=== PATIENT | female | born 1995 | race African-American/Black ===

== ENCOUNTER 2016-11-23 12:28 | Outpatient (CLI) | payer MEDICAID ==
[2016-11-23 12:58] VITALS: BP 112/69
== END 2016-11-23 13:42 | disposition home or self-care (01) ==
LOC: TRG 12:28
PROVIDERS: ATTEND Obstetrics & Gynecology Gynecology
DX: O77.9 Labor and delivery complicated by fetal stress, unspecified (principal); O47.9 False labor, unspecified; Z3A.00 Weeks of gestation of pregnancy not specified

== ENCOUNTER 2016-11-24 18:41 | Outpatient (CLI) | payer MEDICAID ==
[2016-11-27 19:45] VITALS: BP 132/60
== END 2016-11-24 20:34 | disposition home or self-care (01) ==
LOC: TRG 18:41
PROVIDERS: ATTEND Obstetrics & Gynecology Gynecology
DX: O77.9 Labor and delivery complicated by fetal stress, unspecified (principal); O47.9 False labor, unspecified; Z3A.00 Weeks of gestation of pregnancy not specified

== ENCOUNTER 2016-11-26 20:36 | Inpatient (IN) | payer MEDICAID ==
[2016-11-26] MEDS ORDERED: PHENERGAN PO PRN (21:36)
[2016-11-26] MEDS ORDERED: BRETHINE IVP PRN (21:36)
[2016-11-26] MEDS ORDERED: SUBLIMAZE IV PRN (21:36)
[2016-11-26] MEDS ORDERED: STADOL IV PRN (21:36)
[2016-11-26] MEDS ORDERED: ZOFRAN IV PRN (21:36)
[2016-11-26] MEDS ORDERED: CERVIDIL VG ONE (21:36)
[2016-11-26] MEDS ORDERED: NARCAN 0.4 MG/1 ML IV PRN (21:36)
[2016-11-26] MEDS ORDERED: MINERAL OIL PO PRN (21:36)
[2016-11-26] MEDS ORDERED: BRETHINE SUB-Q PRN (21:36)
[2016-11-26] MEDS ORDERED: ePHEDrine SULFATE IV PRN (21:36)
--- NOTE | 2016-11-26 21:36 | History and Physical Report ---
History of Present Illness Date of examination: 11/26/16 Date of admission: 11/26/16 20:36 Chief complaint: Induction of labor History of present illness: Pt is a 21yo AF EDC 11/19/16; EGA 41 0/7 weeks presents for post dates induction of labor. She received care at [facility] since 20 weeks and course has been unremarkable. records are available and GBS negative. Past History Past Medical History: no pertinent history Past Surgical History: no surgical history Family/Genetic History: none Social history: no significant social history, single - Obstetrical History Expected Date of Delivery: 11/19/16 Actual Gestation: 41 Week(s) 1 Day(s) : 1 Medications and Allergies Allergies Allergy/AdvReac Type Severity Reaction Status Date / Time No Known Allergies Allergy Verified 11/24/16 18:52 Home Medications Medication Instructions Recorded Confirmed Last Taken Type No Known Home Medications [No 11/24/16 11/24/16 Unknown History Reported Home Medications] Review of Systems All systems: negative - Physical Exam Breasts: Positive: deferred Cardiovascular: Regular rate Lungs: Positive: Clear to auscultation Abdomen: Positive: normal appearance Genitourinary (Female): Positive: normal external genitalia Uterus: Positive: enlarged Extremities: Positive: normal - Obstetrical FHR: category 1 Uterine Contraction Monitor Mode: External Cervical Dilatation: 0 Cervical Effacement Percentage: 50 Uterine Contraction Pattern: Absent Results Result Diagrams: 11/26/16 22:00 All other labs normal. Assessment and Plan - Patient Problems (1) Post-dates Diagnosis Date: 11/27/16 Current Visit: Yes Status: Acute Plan to address problem: A: IUP @ 41 0/7 weeks P: Admit to L&D for cervidel/pitocin induction of labor
[2016-11-26] MEDS ORDERED: PITOCin/NS 30 UNIT/500ML 500 ML IV SCH (22:00)
[2016-11-26] MEDS ORDERED: PITOCin/NS 20 UNIT/1000ML DRIP 1,000 ML IV SCH (22:00)
[2016-11-26 22:17] LABS: Hematocrit 38.9 % (30.3-42.9); Hemoglobin 12.6 gm/dl (10.1-14.3); Mean Corpuscular HGB Conc 33 % (30-34); Mean Corpuscular Hemoglobin 28 pg (28-32); Mean Corpuscular Volume 86 fl (79-97); Platelet Count 227 K/mm3 (140-440); Red Blood Count 4.52 M/mm3 (3.65-5.03); Red Cell Distribution Width 15.8 % (13.2-15.2); White Blood Count 8.4 K/mm3 (4.5-11.0)
[2016-11-26] MEDS: LACTATED RINGERS 1,000 ML IV SCH (23:24)
[2016-11-27] MEDS: LACTATED RINGERS 1,000 ML IV SCH ×2 (09:04→11:18)
--- NOTE | 2016-11-27 09:11 | Progress Note ---
Assessment and Plan - Patient Problems (1) Post-dates Diagnosis Date: 11/27/16 Current Visit: Yes Status: Acute Plan to address problem: A: IUP @ 41 1/7 weeks P: Continue with pitocin induction of labor May have epidural now Expectant vaginal delivery Subjective - Subjective Date of service: 11/27/16 Principal diagnosis: Postdates induction of labor Interval history: Pt is feeling well john q 2-4 mins and awaiting epidural placement. Pitocin temporarily suspended until epidural done. Patient reports: loss of fluid (SROM clear fluid @ 0530), contractions, no new complaints, no vaginal bleeding, no movement normal Objective - Vital Signs Vital Signs: Vital Signs - 12hr 11/26/16 11/26/16 11/26/16 22:17 22:20 22:21 Temperature 98.0 F Pulse Rate 101 H 103 H Pulse Rate [ 105 H Right From Monitor] Respiratory 18 Rate Blood Pressure 113/78 Blood Pressure 113/78 [Left Arm] O2 Sat by Pulse 96 97 Oximetry 11/26/16 11/26/16 11/26/16 22:25 22:30 22:35 Temperature Pulse Rate 106 H 106 H 106 H Pulse Rate [ Right From Monitor] Respiratory Rate Blood Pressure Blood Pressure [Left Arm] O2 Sat by Pulse 96 96 95 Oximetry 11/26/16 11/26/16 11/26/16 22:40 22:41 22:45 Temperature Pulse Rate 112 H 109 H 106 H Pulse Rate [ Right From Monitor] Respiratory Rate Blood Pressure Blood Pressure [Left Arm] O2 Sat by Pulse 95 94 95 Oximetry 11/26/16 11/26/16 11/26/16 22:48 22:50 22:55 Temperature Pulse Rate 108 H 115 H 121 H Pulse Rate [ Right From Monitor] Respiratory Rate Blood Pressure Blood Pressure [Left Arm] O2 Sat by Pulse 94 95 94 Oximetry 11/26/16 11/26/16 11/26/16 23:00 23:05 23:11 Temperature Pulse Rate 105 H 103 H 116 H Pulse Rate [ Right From Monitor] Respiratory Rate Blood Pressure Blood Pressure [Left Arm] O2 Sat by Pulse 95 93 95 Oximetry 11/26/16 11/26/16 11/26/16 23:16 23:21 23:26 Temperature Pulse Rate 102 H 105 H 107 H Pulse Rate [ Right From Monitor] Respiratory Rate Blood Pressure Blood Pressure [Left Arm] O2 Sat by Pulse 96 96 95 Oximetry 11/26/16 11/26/16 11/26/16 23:31 23:34 23:38 Temperature Pulse Rate 110 H 107 H Pulse Rate [ Right From Monitor] Respiratory Rate Blood Pressure 108/67 Blood Pressure [Left Arm] O2 Sat by Pulse 97 94 Oximetry 11/26/16 11/26/16 11/26/16 23:41 23:45 23:47 Temperature Pulse Rate 100 H 135 H 107 H Pulse Rate [ Right From Monitor] Respiratory Rate Blood Pressure Blood Pressure [Left Arm] O2 Sat by Pulse 96 94 95 Oximetry 11/26/16 11/26/16 11/26/16 23:50 23:53 23:58 Temperature Pulse Rate 109 H 113 H 109 H Pulse Rate [ Right From Monitor] Respiratory Rate Blood Pressure 109/66 Blood Pressure [Left Arm] O2 Sat by Pulse 94 97 96 Oximetry 11/27/16 11/27/16 11/27/16 00:02 00:03 00:04 Temperature Pulse Rate 109 H 107 H 112 H Pulse Rate [ Right From Monitor] Respiratory Rate Blood Pressure 112/70 Blood Pressure [Left Arm] O2 Sat by Pulse 94 93 Oximetry 11/27/16 11/27/16 11/27/16 00:08 00:13 00:18 Temperature Pulse Rate 113 H 112 H 113 H Pulse Rate [ Right From Monitor] Respiratory Rate Blood Pressure Blood Pressure [Left Arm] O2 Sat by Pulse 97 96 96 Oximetry 11/27/16 11/27/16 11/27/16 00:19 00:23 00:28 Temperature Pulse Rate 114 H 112 H 110 H Pulse Rate [ Right From Monitor] Respiratory Rate Blood Pressure 99/58 Blood Pressure [Left Arm] O2 Sat by Pulse 97 0 L Oximetry 11/27/16 11/27/16 11/27/16 00:34 00:39 00:44 Temperature Pulse Rate 110 H 111 H 118 H Pulse Rate [ Right From Monitor] Respiratory Rate Blood Pressure Blood Pressure [Left Arm] O2 Sat by Pulse 93 96 97 Oximetry 11/27/16 11/27/16 11/27/16 00:52 00:57 01:02 Temperature Pulse Rate 114 H 113 H 112 H Pulse Rate [ Right From Monitor] Respiratory Rate Blood Pressure Blood Pressure [Left Arm] O2 Sat by Pulse 96 98 97 Oximetry 11/27/16 11/27/16 11/27/16 01:07 01:12 01:23 Temperature Pulse Rate 101 H 112 H 108 H Pulse Rate [ Right From Monitor] Respiratory Rate Blood Pressure 92/50 Blood Pressure [Left Arm] O2 Sat by Pulse 96 96 Oximetry 11/27/16 11/27/16 11/27/16 01:24 01:37 01:42 Temperature Pulse Rate 110 H 109 H 113 H Pulse Rate [ Right From Monitor] Respiratory Rate Blood Pressure Blood Pressure [Left Arm] O2 Sat by Pulse 96 97 97 Oximetry 11/27/16 11/27/16 11/27/16 01:48 01:53 01:59 Temperature Pulse Rate 115 H 120 H 107 H Pulse Rate [ Right From Monitor] Respiratory Rate Blood Pressure Blood Pressure [Left Arm] O2 Sat by Pulse 96 96 95 Oximetry 11/27/16 11/27/16 11/27/16 02:01 02:04 02:12 Temperature Pulse Rate 109 H 111 H Pulse Rate [ Right From Monitor] Respiratory Rate Blood Pressure 92/54 Blood Pressure [Left Arm] O2 Sat by Pulse 96 94 Oximetry 11/27/16 11/27/16 11/27/16 02:13 02:18 02:23 Temperature Pulse Rate 111 H 110 H 114 H Pulse Rate [ Right From Monitor] Respiratory Rate Blood Pressure 86/50 Blood Pressure [Left Arm] O2 Sat by Pulse 95 96 95 Oximetry 11/27/16 11/27/16 11/27/16 02:27 02:28 02:33 Temperature Pulse Rate 123 H 116 H 123 H Pulse Rate [ Right From Monitor] Respiratory Rate Blood Pressure Blood Pressure [Left Arm] O2 Sat by Pulse 93 95 95 Oximetry 11/27/16 11/27/16 11/27/16 02:42 02:43 02:47 Temperature Pulse Rate 114 H 116 H 116 H Pulse Rate [ Right From Monitor] Respiratory Rate Blood Pressure Blood Pressure [Left Arm] O2 Sat by Pulse 95 93 95 Oximetry 11/27/16 11/27/16 11/27/16 02:52 02:57 03:02 Temperature Pulse Rate 104 H 109 H 104 H Pulse Rate [ Right From Monitor] Respiratory Rate Blood Pressure Blood Pressure [Left Arm] O2 Sat by Pulse 97 96 96 Oximetry 11/27/16 11/27/16 11/27/16 03:07 03:12 03:17 Temperature Pulse Rate 116 H 111 H 111 H Pulse Rate [ Right From Monitor] Respiratory Rate Blood Pressure Blood Pressure [Left Arm] O2 Sat by Pulse 96 96 95 Oximetry 11/27/16 11/27/16 11/27/16 03:22 03:27 03:38 Temperature Pulse Rate 111 H 110 H 103 H Pulse Rate [ Right From Monitor] Respiratory Rate Blood Pressure 116/76 Blood Pressure [Left Arm] O2 Sat by Pulse 96 96 98 Oximetry 11/27/16 11/27/16 11/27/16 03:44 03:49 03:54 Temperature Pulse Rate 104 H 103 H Pulse Rate [ Right From Monitor] Respiratory Rate Blood Pressure Blood Pressure [Left Arm] O2 Sat by Pulse 97 97 98 Oximetry 11/27/16 11/27/16 11/27/16 03:59 04:04 04:10 Temperature Pulse Rate 105 H 109 H 117 H Pulse Rate [ Right From Monitor] Respiratory Rate Blood Pressure Blood Pressure [Left Arm] O2 Sat by Pulse 97 98 97 Oximetry 11/27/16 11/27/16 11/27/16 04:15 04:23 04:28 Temperature Pulse Rate 103 H 103 H 111 H Pulse Rate [ Right From Monitor] Respiratory Rate Blood Pressure 113/79 Blood Pressure [Left Arm] O2 Sat by Pulse 96 97 96 Oximetry 11/27/16 11/27/16 11/27/16 04:31 04:35 04:40 Temperature Pulse Rate 105 H 112 H 109 H Pulse Rate [ Right From Monitor] Respiratory Rate Blood Pressure Blood Pressure [Left Arm] O2 Sat by Pulse 93 96 95 Oximetry 11/27/16 11/27/16 11/27/16 04:45 04:55 05:00 Temperature Pulse Rate 113 H 105 H 116 H Pulse Rate [ Right From Monitor] Respiratory Rate Blood Pressure Blood Pressure [Left Arm] O2 Sat by Pulse 97 97 97 Oximetry 11/27/16 11/27/16 11/27/16 05:05 05:11 05:16 Temperature Pulse Rate 107 H 105 H 107 H Pulse Rate [ Right From Monitor] Respiratory Rate Blood Pressure Blood Pressure [Left Arm] O2 Sat by Pulse 97 96 96 Oximetry 11/27/16 11/27/16 11/27/16 05:21 05:23 05:26 Temperature Pulse Rate 121 H 100 H 111 H Pulse Rate [ Right From Monitor] Respiratory Rate Blood Pressure 123/92 Blood Pressure [Left Arm] O2 Sat by Pulse 96 94 Oximetry 11/27/16 11/27/16 11/27/16 05:31 05:32 05:36 Temperature Pulse Rate 97 H 110 H 121 H Pulse Rate [ Right From Monitor] Respiratory Rate Blood Pressure Blood Pressure [Left Arm] O2 Sat by Pulse 96 94 95 Oximetry 11/27/16 11/27/16 11/27/16 05:39 05:41 05:44 Temperature Pulse Rate 109 H 116 H 111 H Pulse Rate [ Right From Monitor] Respiratory Rate Blood Pressure Blood Pressure [Left Arm] O2 Sat by Pulse 94 95 94 Oximetry 11/27/16 11/27/16 11/27/16 05:46 05:52 05:55 Temperature Pulse Rate 114 H 114 H 116 H Pulse Rate [ Right From Monitor] Respiratory Rate Blood Pressure Blood Pressure [Left Arm] O2 Sat by Pulse 94 97 94 Oximetry 11/27/16 11/27/16 11/27/16 05:57 06:01 06:02 Temperature Pulse Rate 111 H 108 H 114 H Pulse Rate [ Right From Monitor] Respiratory Rate Blood Pressure Blood Pressure [Left Arm] O2 Sat by Pulse 94 94 94 Oximetry 11/27/16 11/27/16 11/27/16 06:07 06:12 06:15 Temperature Pulse Rate 117 H 113 H 111 H Pulse Rate [ Right From Monitor] Respiratory Rate Blood Pressure Blood Pressure [Left Arm] O2 Sat by Pulse 95 95 94 Oximetry 11/27/16 11/27/16 11/27/16 06:17 06:21 06:22 Temperature Pulse Rate 112 H 115 H 109 H Pulse Rate [ Right From Monitor] Respiratory Rate Blood Pressure Blood Pressure [Left Arm] O2 Sat by Pulse 95 94 94 Oximetry 11/27/16 11/27/16 11/27/16 06:24 06:27 06:37 Temperature Pulse Rate 104 H 107 H 104 H Pulse Rate [ Right From Monitor] Respiratory Rate Blood Pressure 125/90 Blood Pressure [Left Arm] O2 Sat by Pulse 94 96 Oximetry 11/27/16 11/27/16 11/27/16 06:42 06:48 06:53 Temperature Pulse Rate 112 H 118 H 116 H Pulse Rate [ Right From Monitor] Respiratory Rate Blood Pressure Blood Pressure [Left Arm] O2 Sat by Pulse 96 96 96 Oximetry 11/27/16 11/27/16 11/27/16 06:58 07:26 07:27 Temperature 98.3 F Pulse Rate 114 H 107 H Pulse Rate [ 110 H Right From Monitor] Respiratory 18 Rate Blood Pressure Blood Pressure 111/72 [Left Arm] O2 Sat by Pulse 96 97 97 Oximetry 11/27/16 11/27/16 11/27/16 07:28 07:38 07:51 Temperature Pulse Rate 114 H 97 H 112 H Pulse Rate [ Right From Monitor] Respiratory Rate Blood Pressure 111/72 Blood Pressure [Left Arm] O2 Sat by Pulse 97 93 Oximetry 11/27/16 11/27/16 11/27/16 07:58 08:07 08:12 Temperature Pulse Rate 101 H 107 H Pulse Rate [ Right From Monitor] Respiratory 18 Rate Blood Pressure Blood Pressure [Left Arm] O2 Sat by Pulse 96 96 Oximetry 11/27/16 11/27/16 11/27/16 08:15 08:17 08:22 Temperature Pulse Rate 110 H 102 H 106 H Pulse Rate [ Right From Monitor] Respiratory Rate Blood Pressure Blood Pressure [Left Arm] O2 Sat by Pulse 94 94 91 Oximetry 11/27/16 11/27/16 11/27/16 08:23 08:24 08:29 Temperature Pulse Rate 96 H 103 H Pulse Rate [ Right From Monitor] Respiratory Rate Blood Pressure 93/52 Blood Pressure [Left Arm] O2 Sat by Pulse 88 95 Oximetry 11/27/16 11/27/16 11/27/16 08:34 08:35 08:39 Temperature Pulse Rate 101 H 106 H 106 H Pulse Rate [ Right From Monitor] Respiratory Rate Blood Pressure Blood Pressure [Left Arm] O2 Sat by Pulse 95 94 93 Oximetry 11/27/16 11/27/16 11/27/16 08:46 08:54 08:55 Temperature Pulse Rate 101 H 104 H 104 H Pulse Rate [ Right From Monitor] Respiratory Rate Blood Pressure Blood Pressure [Left Arm] O2 Sat by Pulse 89 97 94 Oximetry 11/27/16 11/27/16 08:59 09:00 Temperature Pulse Rate 101 H 101 H Pulse Rate [ Right From Monitor] Respiratory Rate Blood Pressure Blood Pressure [Left Arm] O2 Sat by Pulse 94 94 Oximetry - Exam Cardiovascular: Regular rate Lungs: Clear to auscultation Abdomen: Present: normal appearance Uterus: Present: normal FHR: category 1 Uterine Contraction Monitor Mode: External Cervical Dilatation: 1 Cervical Effacement Percentage: 80 station: -2 Uterine Contraction Pattern: Regular Uterine Tone Measurement Phase: Contraction Uterine Contraction Intensity: Strong/Firm - Labs Labs: Abnormal Labs 11/26/16 22:00 RDW 15.8 H Laboratory Results - last 24 hr 11/26/16 11/26/16 22:00 22:00 WBC 8.4 RBC 4.52 Hgb 12.6 Hct 38.9 MCV 86 MCH 28 MCHC 33 RDW 15.8 H Plt Count 227 Blood Type B POSITIVE Antibody Screen Negative
[2016-11-27] MEDS ORDERED: ePHEDrine SULFATE ONE (09:17)
--- NOTE | 2016-11-27 09:50 | Anesthesia Consultation ---
Anesthesia Consult and Med Hx Date of service: 11/27/16 - Airway Anesthetic Teeth Evaluation: Good ROM Head & Neck: Adequate Mental/Hyoid Distance: Adequate Mallampati Class: Class II Intubation Access Assessment: Probably Good - Pre-Operative Health Status ASA Pre-Surgery Classification: ASA2 Proposed Anesthetic Plan: Epidural, Spinal - Pulmonary Hx Asthma: No COPD: No Hx Pneumonia: No - Cardiovascular System Hx Hypertension: No - Central Nervous System Hx Seizures: No Hx Psychiatric Problems: No - Endocrine Hx Renal Disease: No Hx End Stage Renal Disease: No Hx Hypothyroidism: No Hx Hyperthyroidism: No - Hematic Hx Anemia: No Hx Sickle Cell Disease: No - Other Systems Hx Alcohol Use: No
[2016-11-27] MEDS: fentaNYL-BUPIV 2 MCG/ML-0.125% 100 ML EPIDURAL SCH ×2 (10:23→19:59)
[2016-11-27] MEDS ORDERED: NARCAN 2 MG/2 ML IV PRN (10:30)
[2016-11-27] MEDS: PITOCin/NS 30 UNIT/500ML 500 ML IV SCH ×3 (10:31→12:05)
[2016-11-27] MEDS ORDERED: ePHEDrine SULFATE IV PRN (11:00)
[2016-11-27] MEDS ORDERED: FLUARIX QUAD 2016-2017(36 MOS+) IM ONE (12:00)
[2016-11-27] MEDS ORDERED: TYLENOL ONE (17:17)
[2016-11-27] MEDS ORDERED: TYLENOL PO ONE (18:00)
[2016-11-27] MEDS ORDERED: BICITRA PO ONE (19:27)
[2016-11-27] MEDS ORDERED: PEPCID IV ONE (19:27)
[2016-11-27] MEDS ORDERED: REGLAN IV ONE (19:27)
[2016-11-27] MEDS ORDERED: XYLOCAINE MPF 2% ONE ×3 (19:39→20:53)
[2016-11-27] MEDS ORDERED: MORPHINE ONE (19:39)
--- NOTE | 2016-11-27 19:52 | Anesthesia Day of Surgery ---
Anesthesia Day of Surgery - Day of Surgery Patient Examined: Yes Patient H&P Reviewed: Yes Patient is NPO: Yes
[2016-11-27] MEDS ORDERED: LACTATED RINGERS 1,000 ML IV NR (20:00)
[2016-11-27] MEDS ORDERED: ANCEF/STERILE WATER 2 GM/20 ML 20 ML IV NR (20:00)
[2016-11-27] MEDS ORDERED: PITOCin/NS 20 UNIT/1000ML DRIP 1,000 ML IV NR (20:00)
[2016-11-27] MEDS ORDERED: NACL 0.9% IR ONE (20:30)
[2016-11-27] MEDS ORDERED: WATER FOR IRRIG STERILE IR ONE (20:30)
[2016-11-27] MEDS ORDERED: ZOFRAN ONE ×2 (20:49→20:51)
[2016-11-27] MEDS ORDERED: SUBLIMAZE ONE (20:54)
[2016-11-27] MEDS ORDERED: VERSED ONE (20:58)
[2016-11-27] MEDS ORDERED: TORADOL ONE (21:07)
[2016-11-27] MEDS ORDERED: SENOKOT PO PRN (21:25)
[2016-11-27] MEDS ORDERED: NORCO 5/325 PO PRN (21:25)
[2016-11-27] MEDS ORDERED: TORADOL IV PRN (21:25)
[2016-11-27] MEDS ORDERED: TUCKS PAD TP PRN (21:25)
[2016-11-27] MEDS ORDERED: TYLENOL PO PRN (21:25)
[2016-11-27] MEDS ORDERED: NARCAN 0.4 MG/1 ML IV PRN ×2 (21:25→21:42)
[2016-11-27] MEDS ORDERED: PHENERGAN PR PRN ×2 (21:25→21:42)
[2016-11-27] MEDS ORDERED: LANSINOH TP PRN (21:25)
--- NOTE | 2016-11-27 21:36 | Operative Report ---
Operative Report Operative Report: Date of procedure: 11/27/2016 Pre-operative diagnosis: 1. Intrauterine at 41-1/7 weeks 2. Failed postdates induction of labor 3. Failure to progress 4. Failure to descend Post-operative diagnosis: Same Procedure name(s): Primary low transverse section Surgeon: Melchor Vincent MD Financial Reporting Consultant: None Anesthesia: Epidural by Dr. Xavi Tom EBL: 500 MLS Findings: A 3470 g female infant Apgars 8 at 1 minute 9 at 5 minutes. 2+ meconium fluid. Normal uterus. Normal tubes and ovaries bilaterally. Procedure: After the patient was prepped and draped in usual sterile fashion, and after satisfactory level of epidural anesthesia was obtained, the skin knife was used to make a transverse skin incision. The incision was excised down to layer of the fascia, which was nicked in the midline and extended laterally using the Bovie cautery. The rectus muscles were dissected off the rectus fascia both superiorly and inferiorly. The rectus bellies in the midline, and the peritoneum was entered under direct visualization. The peritoneal incision was extended superiorly and inferiorly. A bladder flap was created and the bladder blade was then placed. The uterus was scored in a curvilinear linear fashion, entered in the midline revealing 2+ meconium amniotic fluid. The 's head was delivered onto the surgical field, nuchal cord 1 easily reduced and the oropharynx and nasopharynx were bulb suctioned. The rest of the 's body was delivered, cord was doubly clamped and cut and the infant was handed to the waiting respiratory team. The placenta was manually removed from the uterus, and the uterus removed from its normal anatomical position. After gentle uterine lavage, the incision was inspected and found to be without extensions. It was then closed in 2 layers using 0 Vicryl suture in a running interlocking fashion, the second layer imbricating the first. After good hemostasis was achieved, copious amounts or irrigation was performed, and the gutters were suctioned free of blood and blood clots. Tisseel sealant was sprayed across the uterine incision. The uterus was then returned to its normal anatomical position, and after excellent hemostasis assured, the peritoneum was reapproximated using 3-0 Vicryl suture in a running interlocking fashion, and then the rectus muscles were reapproximated using 3-0 Vicryl suture in a [id number] configuration. The fascia was then reapproximated using 0 Vicryl suture in running interlocking fashion. The subcutaneous layer was made hemostatic using Bovie cautery, the Tisseel sealant was sprayed across the fascial incision and the skin edges reapproximated using 4-0 Vicryl suture in a subcuticular fashion. Patient tolerated the procedure well was transported to recovery in stable condition.
[2016-11-27] MEDS ORDERED: ZOFRAN IV PRN (21:42)
[2016-11-27] MEDS ORDERED: PHENERGAN PO PRN (21:42)
--- NOTE | 2016-11-27 21:42 | Post Anesthesia Evaluation ---
- Post Anesthesia Evaluation Patient Participated: Yes Airway Patent: Yes Stable Respiratory Function: Yes Nausea/Vomiting: No Temp > 96.8F: Yes Pain Manageable: Yes Adequeate Hydration: Yes Anesthesia Complications: No Block Receding Appropriately: Yes Patient on Ventilator: No
[2016-11-27] MEDS ORDERED: fentaNYL-BUPIV 2 MCG/ML-0.125% 100 ML EPIDURAL SCH (22:00)
[2016-11-27] MEDS ORDERED: SODIUM CHLORIDE FLUSH SYRINGE 10 ML IV NR ×2 (22:00)
[2016-11-27] MEDS ORDERED: PITOCin/NS 20 UNIT/1000ML DRIP 1,000 ML IV SCH (22:00)
[2016-11-28] MEDS: BENADRYL IV PRN (00:07)
[2016-11-28] MEDS: ANCEF/NS 1 GM/50 ML 50 ML IV SCH ×2 (03:10→11:45)
[2016-11-28] MEDS: D5LR 1,000 ML IV SCH ×2 (03:18→11:45)
[2016-11-28] MEDS ORDERED: M-M-R II VACCINE SUB-Q ONE (06:00)
[2016-11-28] MEDS ORDERED: BOOSTRIX IM ONE (06:00)
[2016-11-28] MEDS: PERCOCET 5/325 PO PRN ×2 (07:50→14:15)
[2016-11-28] MEDS: MOTRIN PO PRN ×3 (07:50→20:49)
--- NOTE | 2016-11-28 14:43 | Progress Note ---
Assessment and Plan POD # 1 s/p LTCS -Doing well P: -Continue routine post op care -Anticipate discharge in 24-48 hours - Patient Problems (1) Status post primary low transverse section Current Visit: Yes Status: Acute Subjective - Subjective Date of service: 11/28/16 Principal diagnosis: POD# 1 Interval history: Patient seen and examined earlier in the day while computer still down, stable doing well. Nausea vomiting, no fever or chills Patient reports: appetite normal, voiding normally, pain well controlled : doing well Objective - Vital Signs Latest vital signs: Vital Signs Temp Pulse Pulse Resp BP BP Pulse Ox 11/28/16 11:38 97.8 F 98 H 20 92/44 11/28/16 08:53 99.4 F 100 H 18 94/46 11/28/16 01:27 18 11/27/16 23:09 99.0 F 112 H 18 117/61 11/27/16 23:00 18 11/27/16 22:00 104 H 21 110/74 95 11/27/16 21:50 18 11/27/16 21:40 109 H 22 110/71 96 11/27/16 21:39 116 H 27 H 114/70 97 11/27/16 21:35 121 H 25 H 96 11/27/16 20:13 109 H 108/56 11/27/16 19:14 98.6 F 11/27/16 15:45 119 H 96 11/27/16 15:43 121 H 106/60 11/27/16 15:38 118 H 96 11/27/16 15:33 118 H 96 11/27/16 15:28 119 H 95 11/27/16 15:23 117 H 95 11/27/16 15:18 118 H 96 11/27/16 15:14 121 H 110/65 11/27/16 15:13 118 H 96 11/27/16 15:05 126 H 96 11/27/16 14:58 122 H 96 11/27/16 14:46 121 H 96 11/27/16 14:43 122 H 103/62 11/27/16 14:41 125 H 96 Intake and Output 11/27/16 11/28/16 11/28/16 22:59 06:59 14:59 Intake Total 0171 555 7971 Output Total 950 500 Balance 550 625 580 Intake: IV 1500 625 PITOCin/NS 20 UNIT/1000ML 625 DRIP 1,000 ML @ 125 mls/ hr IV TITR NR Rx#: [id number] Oral 720 Intake, Free Water 360 Output: Urine 950 500 Indwelling Catheter 750 500 Other: Total, Intake Amount 480 Total, Output Amount 750 500 Voiding Method Toilet - Exam Abdomen: Present: normal appearance, soft. Absent: distention, tenderness, guarding, rigidity
[2016-11-28] MEDS: PRENATAL VITAMIN PO SCH (16:30)
[2016-11-28] MEDS: FEOSOL PO SCH (16:30)
[2016-11-28] MEDS: MYLICON PO PRN (22:15)
[2016-11-28] MEDS: MILK OF MAGNESIA PO PRN (22:15)
[2016-11-28 22:50] LABS: Hemoglobin 9.3 gm/dl (10.1-14.3)
[2016-11-29] MEDS: BENADRYL IV PRN (04:34)
[2016-11-29] MEDS ORDERED: BOOSTRIX IM ONE (06:05)
[2016-11-29] MEDS: MILK OF MAGNESIA PO PRN (09:20)
[2016-11-29] MEDS: MYLICON PO PRN (09:20)
[2016-11-29] MEDS: FEOSOL PO SCH (09:20)
[2016-11-29] MEDS: PRENATAL VITAMIN PO SCH (09:20)
[2016-11-29] MEDS: MOTRIN PO PRN ×2 (09:21→17:12)
--- NOTE | 2016-11-29 11:38 | Progress Note ---
Assessment and Plan POD # 2 s/p LTCS -Doing well P: -Continue routine post op care -Anticipate discharge in 24 hours - Patient Problems (1) Status post primary low transverse section Current Visit: Yes Status: Acute Subjective - Subjective Date of service: 11/29/16 Principal diagnosis: POD# 2 Interval history: Patient seen and examined, stable doing well. No nausea vomiting, no fever or chills, ambulating without difficulty Patient reports: appetite normal, voiding normally, pain well controlled, no dizzy ambulation, no flatus, no nauseated [place]: doing well Objective - Vital Signs Latest vital signs: Vital Signs Temp Pulse Resp BP 11/29/16 08:51 98.7 F 119 H 18 114/67 11/29/16 01:45 98.2 F 114 H 20 113/65 11/28/16 21:25 99.4 F 109 H 18 103/57 11/28/16 16:33 98.1 F 100 H 18 96/56 11/28/16 11:38 97.8 F 98 H 20 92/44 Intake and Output 11/28/16 11/29/16 11/29/16 22:59 06:59 14:59 Intake Total 1080 360 360 Output Total 1000 Balance 80 360 360 Intake: Oral 240 360 Intake, Free Water 840 360 Output: Urine 1000 Void 1000 Other: Total, Intake Amount 240 360 Total, Output Amount 600 Voiding Method Toilet # Voids Void 1 2 - Exam Abdomen: Present: normal appearance, soft. Absent: distention, tenderness, guarding, rigidity Uterus: Present: fundal height below umbilicus. Absent: tenderness Extremities: Present: normal Incision: Present: dry, intact - Labs Labs: Abnormal lab results 11/28/16 Range/Units 09:15 Hgb 9.3 L D (10.1-14.3) gm/dl Hct 29.0 L D (30.3-42.9) %
[2016-11-29] MEDS ORDERED: FLUARIX QUAD 2016-2017(36 MOS+) IM ONE (12:00)
--- NOTE | 2016-11-29 12:43 | Progress Note ---
Subjective Date of service: 11/28/16 Principal diagnosis: POD# 1 Interval history: 1st POD after primary Patient is relatively comfortable. Pain is mostly controlled with pain meds. Ambulated well. No residual neurological deficit. No nausea or vomiting. No anesthesia complications Objective - Constitutional Vitals: Vital Signs - 12hr 11/29/16 11/29/16 01:45 08:51 Temperature 98.2 F 98.7 F Pulse Rate [ 114 H 119 H Right From Monitor] Respiratory 20 18 Rate Blood Pressure 113/65 114/67 [Left Arm] - Labs CBC & Chem 7: 11/28/16 09:15 Labs: Abnormal lab results 11/28/16 Range/Units 09:15 Hgb 9.3 L D (10.1-14.3) gm/dl Hct 29.0 L D (30.3-42.9) %
--- NOTE | 2016-11-29 14:06 | Query-Anemia ---
Dear Dr. Hossein Hurt Date: November 29, 2016 Security Intelligence Analyst/CDS: Bo Wilson Phone#: Exercise your independent professional judgment when responding to this query. Questions asked do not imply a particular answer is desired or expected. We greatly appreciate your clarification on this issue. Clinical Documentation States: 21 y/o EDC 11/19/16 is admitted @ [place] 41 0/7 wks for post dates induction of labor. H&P by Dr. Vincent on 11/26 states : "(1) Post-dates " PN by Dr. Hurt on 11/28 states : "(1) Status post primary low transverse section" Clinical Findings Show: 11/26 11/28 Hgb 12.6 9.3 L Hct 38.9 29.0 L Treatment: [X] Iron Supplements Etiology: [ ] Anemia due to acute blood loss [ ] Anemia due to chronic blood loss [ ] Anemia secondary to ESRD [ ] Anemia secondary to neoplastic disease [ ] Iron deficiency anemia due to malabsorption [ ] GI Bleed from: [ ] Anemia of chronic disease ,Other: [ ] Precipitous Drop in Hemoglobin [ ] Precipitous Drop in Hematocrit [ ] Other: [ ] Unable to determine [ ] Comment/Explanation: Present on Admission: [ ] Yes (Y) [ ] Clinically undeterminable (W) [ ] No (N) Please also document response in your Progress Notes and/or Discharge Summary and indicate if the condition was present on admission. MTDD
--- NOTE | 2016-11-30 09:42 | Progress Note ---
Assessment and Plan - Patient Problems (1) Post-dates Onset Date: 11/27/16 Current Visit: Yes Status: Resolved Qualifiers: Post-term type: 40-42 weeks gestation Qualified Code(s): O48.0 - Post-term (2) Status post primary low transverse section Onset Date: 11/30/16 Current Visit: Yes Status: Resolved Plan to address problem: A: S/P LTCS - POD #3 Doing well P: May go home today Subjective - Subjective Date of service: 11/30/16 Principal diagnosis: POD# 3 - s/p LTCS Interval history: Pt is feeling well john q 2-4 mins and awaiting epidural placement. Pitocin temporarily suspended until epidural done. Patient reports: appetite normal, voiding normally, pain well controlled, flatus , ambulating normally, no dizzy ambulation, no nauseated : doing well Objective - Vital Signs Latest vital signs: Vital Signs Temp Pulse Resp BP 11/30/16 01:05 98.9 F 106 H 16 109/73 11/29/16 16:54 98.1 F 100 H 18 94/56 Intake and Output 11/29/16 11/30/16 11/30/16 22:59 06:59 14:59 Intake Total 240 260 Balance 240 260 Intake: Intake, Free Water 240 260 Other: # Voids Void 1 2 - Exam Cardiovascular: Present: Regular rate Lungs: Present: Clear to auscultation Abdomen: Present: normal appearance, soft Uterus: Present: normal, firm, fundal height below umbilicus Extremities: Present: normal Incision: Present: normal, dry, intact
--- NOTE | 2016-11-30 09:44 | Discharge Summary ---
Providers - Providers Date of Admission: 11/26/16 20:36 Date of discharge: 11/30/16 Attending physician: KAELA PERDOMO Primary care physician: KAELA PERDOMO Hospitalization Reason for admission: induction of labor, other (IUP @ 41 weeks) Delivery: Procedure: section, primary low transverse Episiotomy: none Laceration: none Incision: normal, dry, intact Other procedures: none complications: none Discharge diagnosis: IUP at term delivered [place] baby: female Hospital course: Pt is a 21yo AF EDC 11/19/16; EGA 41 0/7 weeks who presented for post dates induction of labor. She received care at [facility] since 20 weeks and course had been unremarkable. She received cervidel followed by pitocin and progressed in labor until she was completely dilated, however she failed to progress any further and the baby did not descend , thus she underwent an uncomplicated C Section for delivery of a 3470gms female . Post operative course was unremarkable, and by POD #3 she was tolerating a reg diet without nausea or vomiting, ambulating and voiding without difficulty. She was therefore discharged to home on POD #3 in stable condition. Condition at discharge: Good Disposition: DISCHARGED TO HOME OR SELFCARE - Discharge Diagnoses (1) Post-dates Status: Resolved Qualifiers: Post-term type: 40-42 weeks gestation Qualified Code(s): O48.0 - Post-term (2) Status post primary low transverse section Status: Resolved Plan - Discharge Medications Prescriptions: Ferrous Sulfate [Feosol 325 MG tab] 325 mg PO BID #60 tablet HYDROcodone/APAP 5-325 [[place] 5/325] 1 each PO Q6HR PRN #30 tablet PRN Reason: Pain Ibuprofen [Motrin] 800 mg PO Q8HR PRN #30 tablet PRN Reason: Moder Pain Unrelieved By [place] Vit W-Ca,Fe,FA(<1 mg) [ Vitamins] 1 each PO DAILY #30 tablet - Provider Discharge Summary Activity: routine, no sex for 6 weeks, no heavy lifting 4 weeks, no strenuous exercise Diet: routine Instructions: routine Additional instructions: [] Smoking cessation referral if applicable(refer to patient education folder for contact #) [] Refer to [facility] Booklet Call your doctor immediately for: * Fever > 100.5 * Heavy vaginal bleeding ( >1 pad per hour) * Severe persistent headache * Shortness of breath * Reddened, hot, painful area to leg or breast * Drainage or odor from incision. * Keep incision clean and dry at all times and follow doctor's instructions regarding bathing/showering - Follow up plan Follow up: KAELA PERDOMO MD [Primary Care Provider] - 14 Days
[2016-11-30] MEDS: FEOSOL PO SCH (10:05)
[2016-11-30] MEDS: PRENATAL VITAMIN PO SCH (10:05)
[2016-11-30 14:07] VITALS: BP 118/69
== END 2016-11-30 14:05 | disposition home or self-care (01) | DRG 765 ==
LOC: LD 20:36 → OB 11-27 22:44
PROVIDERS: ADMIT Obstetrics & Gynecology; ATTEND Obstetrics & Gynecology
PROC: 10907ZC Drainage of Amniotic Fluid, Therapeutic from Products of Conception, Via Natural or Artificial Opening (ICD-10-PCS; principal; 2016-11-27)
PROC: 10D00Z1 Extraction of Products of Conception, Low, Open Approach (ICD-10-PCS; principal; 2016-11-27)
PROC: 3E033VJ Introduction of Other Hormone into Peripheral Vein, Percutaneous Approach (ICD-10-PCS; principal; 2016-11-27)
DX: O48.0 Post-term pregnancy (principal); D62 Acute posthemorrhagic anemia; O32.4XX0 Maternal care for high head at term, not applicable or unspecified; Z3A.41 41 weeks gestation of pregnancy; O61.9 Failed induction of labor, unspecified; O77.0 Labor and delivery complicated by meconium in amniotic fluid; Z37.0 Single live birth; O69.81X0 Labor and delivery complicated by cord around neck, without compression, not applicable or unspecified
CPT/HCPCS: 36415; 59200; 85014; 85018; 85027; 86850; 86900; 86901; 88307; 90686; 90715; 99211; C9250; G0463; J0595; J0690; J1200; J1885; J2250; J2270; J2405; J2590; J2765; J3010; J7120; J7121